=== PATIENT | male | born 1960 ===

== ENCOUNTER 2025-09-09 07:00 | Day surgery (SDC) | payer OTHER ==
[2025-09-02 13:40] VITALS: BP 122/73
[~2025-09-09] VITALS: Ht 170.2 cm; Wt 89.8 kg
[~2025-09-09 07:00] MED LIST: CIALIS5 MG PO; LIPITOR40 MG PO; TENORMIN25 MG PO; WARFARIN SODIUM4 MG PO
[2025-09-09] MEDS ORDERED: METRONIDAZOLE/SODIUM CHLORIDE 500 MG/100 ML PIGGYBACK IV ONE (08:17)
[2025-09-09] MEDS ORDERED: CEFTRIAXONE SODIUM 2,000 MG VIAL ONE (08:17)
[2025-09-09] MEDS ORDERED: BUPIVACAINE HCL/Mpf 0.5% 10ML VIAL ONE (08:51)
[2025-09-09] MEDS ORDERED: LIDOCAINE HCL 1%/EPINEPHRINE 20ML VIAL IJ ONE (08:51)
[2025-09-09] MEDS ORDERED: GENTAMICIN SULFATE 40 MG/ML VIAL ONE (09:08)
[2025-09-09] MEDS ORDERED: POVIDONE-IODINE 118 ML BOTT TOP ONE (10:00)
[2025-09-09] MEDS ORDERED: HEMOSTATIC MATRIX 1 KIT KIT TOP ONE (10:00)
[2025-09-09] MEDS ORDERED: DIBUCAINE 30 GM TUBE RECTAL ONE (10:00)
[2025-09-09] MEDS ORDERED: TAMSULOSIN HCL 0.4 MG CAP PO ONE ×2 (10:45→12:16)
[2025-09-09] MEDS ORDERED: OXYCODONE HCL5 MG PO (11:40)
[2025-09-09] MEDS ORDERED: AMPICILLIN SODIUM 2,000 MG VIAL IV STA (13:04)
== END 2025-09-09 16:00 | disposition home or self-care (01) ==
LOC: CIR.AMB 07:00
PROVIDERS: ATTEND Surgery
DX: K64.2 Third degree hemorrhoids (principal); K64.4 Residual hemorrhoidal skin tags; K62.5 Hemorrhage of anus and rectum; K62.89 Other specified diseases of anus and rectum